=== PATIENT | male | born 1985 | race Caucasian/White ===

== ENCOUNTER 2019-02-04 03:33 | Emergency (ER) | payer BC, OTHER ==
--- NOTE | 2019-02-04 04:06 | EDM.PDOC ---
ED HPI GENERAL MEDICAL PROBLEM - General Chief Complaint: General Stated Complaint: dizzy SOB Time Seen by Provider: 02/04/19 03:44 Source of Information: Reports: Patient History Limitations: Reports: No Limitations - History of Present Illness INITIAL COMMENTS - FREE TEXT/NARRATIVE: Mr. Haider Oliveros is a 33-year-old man with a past medical history significant for anxiety and depression. He states that he has felt lightheaded, dyspneic, chest pressure, general aches, occasional nausea, and occasional blurry vision on and off for the past 3 weeks, although when pressed, he acknowledges that he has had similar but less severe symptoms for about 2 years. The patient is also reporting watery diarrhea on and off for the past week, a headache on and off yesterday, and he developed tingling of his fingers here in the ED. The patient states that he saw a Psychiatrist about his symptoms about 1.5 years ago, and was diagnosed with anxiety. He was prescribed trazodone, buspirone, lorazepam, and a fourth medication whose name he cannot recall. He states that those medicines worked for a while, but his symptoms started to increase, therefore the dosages were increased. He states that those medicines don't seem to be working anymore. He acknowledges that his current symptoms are likely due to anxiety and stress. Here in the ED, the patient appears to be very anxious. It is noted that his oxygen saturation is 100% on room air. The patient does not have a PCP. His Psychiatrist is Dr. Desi Varela. He states that he last saw Dr. Varela about 1.5 to 2 months ago. His next appointment to see her is in late April. The patient has not received an influenza vaccine this season. - Related Data Allergies Allergy/AdvReac Type Severity Reaction Status Date / Time bupropion [From Wellbutrin] Allergy Hives Verified 02/04/19 03:43 erythromycin base Allergy Hives Verified 02/04/19 03:43 Home Meds: Home Meds LORazepam 1 mg PO Q6H PRN 02/04/19 [History] busPIRone [Buspar] 10 mg PO DAILY 02/04/19 [History] traZODone HCl [Trazodone HCl] 100 mg PO BEDTIME 02/04/19 [History] Past Medical History Psychiatric History: Reports: Anxiety, Depression Social & Family History - Family History Family Medical History: Noncontributory - Tobacco Use Smoking Status *Q: Never Smoker Second Hand Smoke Exposure: No - Caffeine Use Caffeine Use: Reports: None - Alcohol Use Alcohol Use History: Yes Alcohol Use Frequency: Socially - Recreational Drug Use Recreational Drug Use: No - Living Situation & Occupation Living situation: Reports: , with Spouse, with Family (3 kids) 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 ED EXAM, GENERAL - Physical Exam Exam: See Below Exam Limited By: No Limitations General Appearance: Alert, WD/WN, Anxious Eye Exam: Bilateral Eye: EOMI, Normal Inspection Ears: Normal External Exam, Hearing Grossly Normal Nose: Normal Inspection Throat/Mouth: Normal Inspection, Normal Lips, Normal Voice, No Airway Compromise Head: Atraumatic, Normocephalic Neck: Normal Inspection, Full Range of Motion Respiratory/Chest: No Respiratory Distress, Lungs Clear, Normal Breath Sounds, No Accessory Muscle Use Cardiovascular: Normal Peripheral Pulses, Regular Rate, Rhythm, No Edema, No Gallop, No JVD, No Murmur, No Rub Peripheral Pulses: 4+: Radial (L), Radial (R) GI/Abdominal: Normal Bowel Sounds, Soft, Non-Tender, No Organomegaly, No Distention, No Abnormal Bruit, No Mass (Male) Exam: Deferred Rectal (Males) Exam: Deferred Back Exam: Normal Inspection, Full Range of Motion, NT Extremities: Normal Inspection, Normal Range of Motion, No Pedal Edema, Normal Capillary Refill Neurological: Alert, Oriented, Normal Cognition, No Motor/Sensory Deficits Psychiatric: Anxious Skin Exam: Warm, Dry, Intact, Normal Color, No Rash EKG INTERPRETATION EKG Date: 02/04/19 Time: 04:03 Rhythm: Other (Sinus tachycardia) Rate (Beats/Min): 100 Sharps: Normal (Borderline RAD) P-Wave: Present QRS: RBBB (Incomplete. Late transition.) ST-T: Normal QT: Normal Comparison: NA - No Prior EKG Course - Vital Signs Last Recorded V/S: Last Vital Signs Temp 36.3 C 02/04/19 03:40 Pulse 82 02/04/19 03:40 Resp 19 02/04/19 03:40 BP 123/81 02/04/19 03:40 Pulse Ox 100 02/04/19 03:40 Orthostatic Blood Pressure [ 121/93 Standing] Orthostatic Blood Pressure [ 129/83 Supine] - Orders/Labs/Meds Orders: Active Orders 24 hr Category Date Time Status EKG Documentation Completion [RC] STAT Care 02/04/19 03:57 Active Orthostatic Vital Signs [RC] STAT Care 02/04/19 03:57 Active Chest 2V [CR] Stat Exams 02/04/19 03:57 Taken Labs: Laboratory Tests 02/04/19 02/04/19 02/04/19 Range/Units 04:08 04:08 04:08 WBC (4.23-9.07) K/mm3 RBC (4.63-6.08) M/mm3 Hgb (13.7-17.5) gm/dl Hct (40.1-51.0) % MCV (79.0-92.2) fl MCH (25.7-32.2) pg MCHC (32.2-35.5) g/dl RDW Std Deviation (35.1-43.9) fL Plt Count (163-337) K/mm3 MPV (9.4-12.3) fl Neut % (Auto) (34.0-67.9) % Lymph % (Auto) (21.8-53.1) % [place] % (Auto) (5.3-12.2) % Eos % (Auto) (0.8-7.0) Baso % (Auto) (0.1-1.2) % Neut # (Auto) (1.78-5.38) K/mm3 Lymph # (Auto) (1.32-3.57) K/mm3 [place] # (Auto) (0.30-0.82) K/mm3 Eos # (Auto) (0.04-0.54) K/mm3 Baso # (Auto) (0.01-0.08) K/mm3 D-Dimer, Quantitative < 0.19 L (0.19-0.50) mg/L Puncture Site ABG pH (7.35-7.45) ABG pCO2 (35.0-45.0) mmHg ABG pO2 (80.0-100.0) mmHg ABG HCO3 (22.0-26.0) meq/L ABG O2 Saturation (96.0-97.0) % ABG Base Excess (-2-2.0) A-a Gradient mmHg O2 Delivery Device FiO2 (21.00-100.00) % Sodium 142 (136-145) mEq/L Potassium 4.3 (3.5-5.1) mEq/L Chloride 105 (98-107) mEq/L Carbon Dioxide 28 (21-32) mEq/L Anion Gap 13.3 (5-15) BUN 16 (7-18) mg/dL Creatinine 1.4 H (0.7-1.3) mg/dL Est Cr Clr Drug Dosing 71.48 mL/min Estimated GFR (MDRD) 59 (>60) mL/min BUN/Creatinine Ratio 11.4 L (14-18) Glucose 110 H (74-106) mg/dL Calcium 9.3 (8.5-10.1) mg/dL Magnesium 1.7 L (1.8-2.4) mg/dl Total Bilirubin 0.7 (0.2-1.0) mg/dL AST 22 (15-37) U/L ALT 27 (16-63) U/L Alkaline Phosphatase 78 (46-116) U/L Troponin I < 0.017 (0.00-0.056) ng/mL NT-Pro-B Natriuret Pep 10 (0-125) pg/mL Total Protein 7.4 (6.4-8.2) g/dl Albumin 4.3 (3.4-5.0) g/dl Globulin 3.1 gm/dL Albumin/Globulin Ratio 1.4 (1-2) TSH 3rd Generation 2.779 (0.358-3.74) uIU/mL Urine Color (Yellow) Urine Appearance (Clear) Urine pH (5.0-8.0) Ur Specific [place] (1.005-1.030) Urine Protein (Negative) Urine Glucose (UA) (Negative) Urine Ketones (Negative) Urine Occult Blood (Negative) Urine Nitrite (Negative) Urine Bilirubin (Negative) Urine Urobilinogen (0.2-1.0) Ur Leukocyte Esterase (Negative) Urine RBC (0-5) /hpf Urine WBC (0-5) /hpf Ur Epithelial Cells (0-5) /hpf Amorphous Sediment (NOT SEEN) /hpf Urine Bacteria (FEW) /hpf Urine Mucus (FEW) /hpf 02/04/19 02/04/19 02/04/19 Range/Units 04:08 04:20 04:40 WBC 7.23 (4.23-9.07) K/mm3 RBC 5.01 (4.63-6.08) M/mm3 Hgb 15.3 (13.7-17.5) gm/dl Hct 42.9 (40.1-51.0) % MCV 85.6 (79.0-92.2) fl MCH 30.5 (25.7-32.2) pg MCHC 35.7 H (32.2-35.5) g/dl RDW Std Deviation 38.5 (35.1-43.9) fL Plt Count 259 (163-337) K/mm3 MPV 10.0 (9.4-12.3) fl Neut % (Auto) 55.0 (34.0-67.9) % Lymph % (Auto) 35.5 (21.8-53.1) % [place] % (Auto) 7.7 (5.3-12.2) % Eos % (Auto) 1.1 (0.8-7.0) Baso % (Auto) 0.4 (0.1-1.2) % Neut # (Auto) 3.97 (1.78-5.38) K/mm3 Lymph # (Auto) 2.57 (1.32-3.57) K/mm3 [place] # (Auto) 0.56 (0.30-0.82) K/mm3 Eos # (Auto) 0.08 (0.04-0.54) K/mm3 Baso # (Auto) 0.03 (0.01-0.08) K/mm3 D-Dimer, Quantitative (0.19-0.50) mg/L Puncture Site Lt radial ABG pH 7.52 H (7.35-7.45) ABG pCO2 28.6 L (35.0-45.0) mmHg ABG pO2 84.0 (80.0-100.0) mmHg ABG HCO3 23.2 (22.0-26.0) meq/L ABG O2 Saturation 97.9 H (96.0-97.0) % ABG Base Excess 1.9 (-2-2.0) A-a Gradient 30 mmHg O2 Delivery Device Room air FiO2 21.00 (21.00-100.00) % Sodium (136-145) mEq/L Potassium (3.5-5.1) mEq/L Chloride (98-107) mEq/L Carbon Dioxide (21-32) mEq/L Anion Gap (5-15) BUN (7-18) mg/dL Creatinine (0.7-1.3) mg/dL Est Cr Clr Drug Dosing mL/min Estimated GFR (MDRD) (>60) mL/min BUN/Creatinine Ratio (14-18) Glucose (74-106) mg/dL Calcium (8.5-10.1) mg/dL Magnesium (1.8-2.4) mg/dl Total Bilirubin (0.2-1.0) mg/dL AST (15-37) U/L ALT (16-63) U/L Alkaline Phosphatase (46-116) U/L Troponin I (0.00-0.056) ng/mL NT-Pro-B Natriuret Pep (0-125) pg/mL Total Protein (6.4-8.2) g/dl Albumin (3.4-5.0) g/dl Globulin gm/dL Albumin/Globulin Ratio (1-2) TSH 3rd Generation (0.358-3.74) uIU/mL Urine Color Yellow (Yellow) Urine Appearance Clear (Clear) Urine pH 8.5 H (5.0-8.0) Ur Specific [place] 1.020 (1.005-1.030) Urine Protein Negative (Negative) Urine Glucose (UA) Negative (Negative) Urine Ketones Negative (Negative) Urine Occult Blood Negative (Negative) Urine Nitrite Negative (Negative) Urine Bilirubin Negative (Negative) Urine Urobilinogen 0.2 (0.2-1.0) Ur Leukocyte Esterase Negative (Negative) Urine RBC 0-5 (0-5) /hpf Urine WBC 0-5 (0-5) /hpf Ur Epithelial Cells Not seen (0-5) /hpf Amorphous Sediment Few H (NOT SEEN) /hpf Urine Bacteria Few (FEW) /hpf Urine Mucus Few (FEW) /hpf Meds: Medications Discontinued Medications Generic Name Dose Route Start Last Admin Trade Name Freq PRN Reason Stop Dose Admin Lorazepam 1 mg 02/04/19 04:22 02/04/19 04:57 Ativan PO 02/04/19 04:23 1 mg ONETIME ONE Administration - Re-Assessments/Exams Free Text/Narrative Re-Assessment/Exam: 02/04/19 03:59 The patient acknowledges that his symptoms are most likely due to anxiety, however, he still requested a workup to rule out organic causes for his symptoms. I have therefore ordered such a workup. 02/04/19 04:16 The patient is not orthostatic. 02/04/19 04:22 Due to the apparent degree of the patient's anxiety, I have ordered some oral Ativan, however, the patient will then need to find a ride home. 02/04/19 04:35 2-view chest radiograph reviewed. The cardiac silhouette is within normal limits. No pulmonary vascular congestion. No pleural effusions. No focal infiltrate. No pneumothorax. There is hyperinflation and bilateral diaphragmatic flattening, consistent with COPD. There is subtle thoracolumbar scoliosis. Formal read per the Radiologist pending. 02/04/19 05:11 The patient's CBC is unremarkable. His CMP is remarkable for a creatinine slightly elevated at 1.4 and a blood glucose slightly elevated at 110, with the remainder of his CMP being unremarkable. His magnesium level is slightly depressed at 1.7. His troponin is undetectably low. His BNP is within normal limits at 10. His TSH is within normal limits at 2.779. His d-dimer is undetectably low. His arterial blood gas represents an acute respiratory alkalosis. His urinalysis is unremarkable. 02/04/19 05:28 Test results discussed with the patient. I explained that the ABG confirmed that the patient was hyperventilating, and that hyperventilation is the cause of his symptoms. I explained that hyperventilation is usually due to anxiety, but can be caused by a number of physiologic conditions, as well, but that today 's workup ruled all of those out. By a process of elimination, then, the patient 's hyperventilation appears to be due to anxiety. I explained that while Dr. Varela can manage the patient's anxiety, he does not have to see a Psychiatrist; primary care providers see this condition all the time and are perfectly capable of managing it. Since the patient can't get in to see Dr. Varela until late April, I suggested that I refer him to our clinic, and the patient agreed. Departure - Departure Time of Disposition: 05:30 Disposition: Home, Self-Care 01 Condition: Good Clinical Impression: Hyperventilation syndrome, Anxiety - Discharge Information *PRESCRIPTION DRUG MONITORING PROGRAM REVIEWED*: Not Applicable *COPY OF PRESCRIPTION DRUG MONITORING REPORT IN PATIENT CHARLETTE: Not Applicable Referrals: Curtis Cochran MD [Physician] - Avery,Desi Dickson MD [Ordering Only Provider] - Forms: ED Department Discharge Additional Instructions: You were seen in the emergency room for lightheadedness, shortness of breath, chest pressure, generalized body aches, nausea, occasional blurry vision, watery diarrhea, headaches, and tingling and numbness to your fingers. Workup in the ER included blood work, an arterial blood gas, a urinalysis, positional blood pressure checks, a chest x-ray, and an ECG. The arterial blood gas confirmed that you were hyperventilating. As discussed, hyperventilation is usually caused by anxiety, but can be caused by a number of medical conditions, including metabolic acidosis, diabetic ketoacidosis, uremia , hypocalcemia, hypoglycemia, hyperthyroidism, liver failure, severe anemia, sepsis, an acute coronary event, a pneumothorax, pneumonia, dysrhythmias, a pulmonary embolus, or congestive heart failure. In your case, all of these were ruled out. By a process of elimination, your hyperventilation is most likely due to anxiety. As discussed, while your anxiety is currently being managed by Dr. Varela, this condition is common, and can be managed by primary care providers. We recommend that you follow-up with Dr. Salomon, or one of the other providers in our clinic , at the next available appointment. If any other problems, please do not hesitate to return to the ER. - My Orders Last 24 Hours: My Active Orders 02/04/19 03:57 EKG Documentation Completion [RC] STAT Orthostatic Vital Signs [RC] STAT Chest 2V [CR] Stat - Assessment/Plan Last 24 Hours: My Active Orders 02/04/19 03:57 EKG Documentation Completion [RC] STAT Orthostatic Vital Signs [RC] STAT Chest 2V [CR] Stat
[2019-02-04] MEDS ORDERED: LORazepam 1 MG Tab PO ONE (04:22)
--- NOTE | 2019-02-04 06:49 | CR ---
Chest: Two views of the chest were obtained. Comparison: No previous chest x-ray is available. Lungs appear slightly hyperinflated. Heart size and mediastinum are normal. No acute parenchymal change is seen. Mild scoliosis is noted within the spine. Mild pectus excavatum deformity is seen. Impression: 1. Slightly hyperinflated lungs. Please correlate if patient has history of asthma or smoking. Findings could also represent good inspiratory effort. 2. Incidental osseous findings. 3. Nothing acute is otherwise seen on two-view chest x-ray. Diagnostic code #2
== END 2019-02-04 05:59 | disposition home or self-care (01) ==
LOC: JD.ED 03:33
DX: F45.8 Other somatoform disorders (principal); F41.9 Anxiety disorder, unspecified; R07.89 Other chest pain; F32.9 Major depressive disorder, single episode, unspecified; Z88.8 Allergy status to other drugs, medicaments and biological substances; Z88.1 Allergy status to other antibiotic agents
CPT/HCPCS: 36415; 36600; 71046; 80053; 81001; 82803; 83735; 83880; 84443; 84484; 85025; 85379; 93005; 99285; A9270; 93010; 99283

== ENCOUNTER 2019-10-17 22:23 | Emergency (ER) | payer MEDICAID, OTHER ==
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
--- NOTE | 2019-10-18 09:17 | US ---
Testicular ultrasound: Multiple real-time images of the testicles were obtained. Testicles have a homogeneous ultrasound appearance. No intratesticular abnormality is seen. Arterial and venous blood flow are seen within both testicles. Small right-sided hydrocele is noted. Hypervascular right epididymis is noted. Left at epididymis appears within normal limits. Measurements: Right testicle: 1.6 x 0.9 x 1.6 cm Left testicle 1.2 x 1.2 x 1.3 cm Impression: 1. Small right-sided hydrocele. 2. Increased vascularity within the right epididymis with differential including change from recent trauma as well as epididymitis. 3. No intratesticular abnormality is seen. Diagnostic code #3 This report was dictated in MDT I agree with preliminary report from ned, finalized on 10/18/19, 1:59 AM Central Daylight Time
== END 2019-10-18 01:18 | disposition home or self-care (01) ==
LOC: JD.ED 22:23
DX: S30.22XA Contusion of scrotum and testes, initial encounter (principal); N45.1 Epididymitis; F41.9 Anxiety disorder, unspecified; F32.9 Major depressive disorder, single episode, unspecified; K21.9 Gastro-esophageal reflux disease without esophagitis; Z77.22 Contact with and (suspected) exposure to environmental tobacco smoke (acute) (chronic); Z88.1 Allergy status to other antibiotic agents; Z88.8 Allergy status to other drugs, medicaments and biological substances; Z79.899 Other long term (current) drug therapy; W50.0XXA Accidental hit or strike by another person, initial encounter
CPT/HCPCS: 76870; 76870-26; 93975; 99283; 99284-25

== ENCOUNTER 2022-02-19 15:51 | Emergency (ER) | payer MEDICAID ==
[2022-02-19] MEDS ORDERED: HYDROmorphone 0.5 MG/0.5 ML Syringe IM ONE (17:18)
[2022-02-19] MEDS ORDERED: Ondansetron 4 MG Tab.DIS PO ONE (17:18)
== END 2022-02-19 21:30 | disposition home or self-care (01) ==
LOC: JD.ED 15:51
DX: I80.252 Phlebitis and thrombophlebitis of left calf muscular vein (principal); K21.9 Gastro-esophageal reflux disease without esophagitis; Z88.1 Allergy status to other antibiotic agents
CPT/HCPCS: 93971-26-LT; 93971-LT; 96372; 99283; A9270-GY; J1170